=== PATIENT | male | born 1995 | race Caucasian/White ===

== ENCOUNTER 2021-01-14 15:46 | Emergency (ER) | payer OTHER ==
[~2021-01-14] VITALS: Ht 177.8 cm; Wt 56.2 kg
== END 2021-01-14 22:08 | disposition home or self-care (01) ==
LOC: ER 15:46
DX: K52.9 Noninfective gastroenteritis and colitis, unspecified (principal)

== ENCOUNTER 2021-06-05 12:49 | Emergency (ER) | payer OTHER ==
[~2021-06-05] VITALS: Ht 177.8 cm; Wt 55.3 kg
== END 2021-06-05 14:05 | disposition home or self-care (01) ==
LOC: ER 12:49
DX: L02.31 Cutaneous abscess of buttock (principal)

== ENCOUNTER 2021-06-06 13:32 | Emergency (ER) | payer OTHER ==
[~2021-06-06] VITALS: Ht 177.8 cm; Wt 55.8 kg
== END 2021-06-06 17:01 | disposition home or self-care (01) ==
LOC: ER 13:32
DX: K61.1 Rectal abscess (principal)